=== PATIENT | female | born 1980 | race Caucasian/White ===

== ENCOUNTER 2020-03-10 06:52 | Emergency (ER) | payer OTHER ==
[2020-03-10 07:02] VITALS: BP 115/71
--- NOTE | 2020-03-10 07:03 | ED Physician Documentation ---
PD HPI OPHTHO - Stated complaint Stated Complaint: RT EYE PAIN - Chief complaint Chief Complaint: Heent - History obtained from History obtained from: Patient - History of Present Illness Timing - onset: How many minutes ago (30), Today Timing - duration: Minutes (30) Timing - details: Abrupt onset (She awoke with a feeling of foreign body and pain in the right eye look good on the lateral upper aspect of the eyeball. She tried rinsing her eye but was still very uncomfortable for blinking and eye movement. There was some light sensitivity. She denied any crusting or matting. She is not aware of any injury and felt well yesterday without any allergy symptoms injury to the eye runny nose or cough.), Still present Location: Right Quality / character: Sharp Associated symptoms: Photophobia. No: Redness, Swelling, Discharge, Decreased vision Contributing factors: No: Exposed to conjunctivitis, Recent URI, Wears contacts Similar symptoms before: Has not had sx before Review of Systems Constitutional: denies: Fever, Chills Eyes: reports: Irritation. denies: Discharge Nose: denies: Rhinorrhea / runny nose, Congestion Throat: denies: Sore throat Respiratory: denies: Cough PD PAST MEDICAL HISTORY - Past Medical History Past Medical History: No - Present Medications Home Medications: Ambulatory Orders Medication Instructions Recorded Confirmed Tetracaine 0.5% Ophth Drops 2 drops RIGHTEYE Q1H PRN #1 bottle 03/10/20 [Tetracaine] - Allergies Allergies/Adverse Reactions: Allergies Allergy/AdvReac Type Severity Reaction Status Date / Time Sulfa (Sulfonamide Allergy Unknown Verified 03/10/20 07:02 Antibiotics) PD ED PE NORMAL - Vitals Vital signs reviewed: Yes - General General: Alert and oriented X 3, Well developed/nourished, Other (Appears uncomfortable with light sensitivity and holding her right eye closed.) - HEENT HEENT: PERRL, EOMI, Pharynx benign PD ED PE EXPANDED - Eyes Eyes: Right eye, No eyelid FB (everted), Corneal abrasion, Fluorescein uptake (lateral upper aspect at about 10 o'clock to the iris. Not in visual axis. ), Anterior chambers clear. No: Eyelid swelling, Exudate, Corneal FB Results - Vitals Vitals: Vital Signs - 24 hr 03/10/20 03/10/20 06:55 07:43 Temperature 36.8 C Heart Rate 63 75 Respiratory 18 20 Rate Blood Pressure 115/71 O2 Saturation 100 99 Oxygen O2 Source Room air PD MEDICAL DECISION MAKING - ED course Complexity details: considered differential (Seems likely an accidental corneal abrasion likely rubbed when sleeping. No signs of infection. She did have improvement with the topical numbing here in the department. Can write a prescription for it. Will place a dose of antibiotic ointment on the eye for now as well to provide some protection effect over the abrasion. She was cautioned about use of topical anesthetic to protect the eye and not prolonged, in accordance with recent articles/guidelines in the EM literature. ), d/w patient Departure - Departure Disposition: Home, Self Care Clinical Impression: Corneal abrasion Qualifiers: Encounter type: initial encounter Laterality: right Qualified Code(s): S05.01XA - Injury of conjunctiva and corneal abrasion without foreign body, right eye, initial encounter Condition: Stable Record reviewed to determine appropriate education?: Yes Instructions: ED Eye Injury Corneal Abrasion Prescriptions: Tetracaine 0.5% Ophth Drops [Tetracaine] 2 drops RIGHTEYE Q1H PRN #1 bottle PRN Reason: Pain Comments: You have an abrasion on the eye surface. This should heal up pretty well on its own with just time and typically improves within a day or 2. We put some ointment on the eye right now to try to coat the surface and have it less irritated. That should last for a few hours and 3. You can carefully use the proparacaine eyedrops periodically for discomfort as well. The caution with the numbing eyedrops is at you will lose protective reflexes and so you want to not be rubbing your eye or out were anything else can get in it if you are using the drops. They last for about 1/2-hour to an hour or so you can be out after that. Your eye should heal up to where you do not need the drops within 12 to 24 hours. Recheck if still uncomfortable enough at that point or if any signs of infection develop. Discharge Date/Time: 03/10/20 07:43
[2020-03-10] MEDS: PROPARACAINE 0.5% OPHTH DROPS 15 ML RIGHTEYE STA (07:12)
[2020-03-10] MEDS ORDERED: ERYTHROMYCIN OPHTH OINT 1 GM TUBE RIGHTEYE STA (07:26)
== END 2020-03-10 07:43 | disposition home or self-care (01) ==
LOC: ED 06:52
DX: S05.01XA Injury of conjunctiva and corneal abrasion without foreign body, right eye, initial encounter (principal); X58.XXXA Exposure to other specified factors, initial encounter
CPT/HCPCS: 99282; 99283; J3490